=== PATIENT | male | born 1965 | race Caucasian/White ===

== ENCOUNTER → 2017-01-19 | Outpatient (CLI) | payer BC ==
[2017-01-19 13:43] LABS: ALBUMIN 4.2 GM/DL (3.2-5.2); ALBUMIN/GLOBULIN RATIO 1.45 (1.00-1.93); ALKALINE PHOSPHATASE 56 U/L (45-117); ALT/SGPT 38 U/L (12-78); ANION GAP 7 MEQ/L (8-16); AST/SGOT 22 U/L (15-37); BILIRUBIN,TOTAL 0.7 MG/DL (0.2-1.0); BLOOD UREA NITROGEN 20 MG/DL (7-18); CALCIUM LEVEL 8.7 MG/DL (8.5-10.1); CARBON DIOXIDE LEVEL 30 MEQ/L (21-32); CHLORIDE LEVEL 106 MEQ/L (98-107); CREATININE FOR GFR 0.88 MG/DL (0.70-1.30); GLOMERULAR FILTRATION RATE > 60.0 (>56); GLUCOSE, FASTING 113 MG/DL (70-105); SODIUM LEVEL 143 MEQ/L (136-145); TOTAL PROTEIN 7.1 GM/DL (6.4-8.2)
== END ==
LOC: M SMT 09:40
PROVIDERS: ATTEND Family Medicine
DX: E78.00 Pure hypercholesterolemia, unspecified (principal); E11.9 Type 2 diabetes mellitus without complications; E55.9 Vitamin D deficiency, unspecified

== ENCOUNTER → 2017-02-07 | Outpatient (CLI) | payer BC ==
--- NOTE | 2017-02-07 21:06 | REP ---
Clinical: Pain. Technique: AP, lateral, bilateral oblique, flexion/extension and coned-down views of the lumbosacral spine. Findings: Moderate multilevel degenerative changes include endplate sclerosis with disc space narrowing and marginal osteophytes as well as mild hypertrophic facet changes. Extension view suggests mild, 3 mm of posterior subluxation at the L2-3 and L3-4 levels. No acute fracture / compression injury. Impression: Moderate multilevel degenerative changes with mild posterior subluxation on extension at L3-4 and L2-3. Signed by Jose Barriga MD 02/07/2017 08:57 P
--- NOTE | 2017-02-07 22:06 | REP ---
Clinical: Palpable mass. Technique: Real time joshi scale ultrasound examination using linear high frequency transducer. Findings: Directed ultrasound examination overlying the left scapula at the site of palpable mass demonstrates normal subcutaneous tissues and musculature which appear symmetric compared to the contralateral side. No mass lesion, fluid collection or abnormality identified. Impression: Normal examination. No mass lesion identified. Signed by Jose Barriga MD 02/07/2017 09:57 P
== END ==
LOC: M RAD 09:30
PROVIDERS: ATTEND Physician Assistant
DX: M70.812 Other soft tissue disorders related to use, overuse and pressure, left shoulder (principal); M51.36 Other intervertebral disc degeneration, lumbar region; Y93.9 Activity, unspecified; Y92.9 Unspecified place or not applicable; Y99.8 Other external cause status

== ENCOUNTER → 2017-05-25 | Outpatient (CLI) | payer BC ==
--- NOTE | 2017-05-25 14:42 | REP ---
Right femur five views: Mineralization and joint spaces are normal. There is no fracture or dislocation. There are no calcifications or foreign bodies. There is internal fixation of the pelvis on the right. Impression: Negative right femur. Internal fixation of the pelvis. Signed by Zachary Denny MD 05/25/2017 02:34 P
== END ==
LOC: M WUC 13:33
PROVIDERS: ATTEND Physician Assistant
DX: M79.604 Pain in right leg (principal)

== ENCOUNTER → 2018-02-22 | Outpatient (CLI) | payer BC ==
[2018-02-22 14:55] LABS: ANION GAP 5 MEQ/L (8-16); BLOOD UREA NITROGEN 22 MG/DL (7-18); CALCIUM LEVEL 9.4 MG/DL (8.5-10.1); CARBON DIOXIDE LEVEL 31 MEQ/L (21-32); CHLORIDE LEVEL 103 MEQ/L (98-107); GLOMERULAR FILTRATION RATE > 60.0 (>56); GLUCOSE, FASTING 121 MG/DL (70-100); POTASSIUM SERUM 5.3 MEQ/L (3.5-5.1); SODIUM LEVEL 139 MEQ/L (136-145)
[2018-02-22 15:13] LABS: ESTIMATED AVERAGE GLUCOSE 128 MG/DL (60-110); HEMOGLOBIN A1c 6.1 %
== END ==
LOC: M SMT 09:22
DX: E11.9 Type 2 diabetes mellitus without complications (principal)
CPT/HCPCS: 83036

== ENCOUNTER → 2021-02-03 | Outpatient (CLI) | payer BC ==
--- NOTE | 2021-02-03 19:09 | REPVR ---
PROCEDURE INFORMATION: Exam: MR Cervical Spine Without Contrast Exam date and time: 02/03/2021 9:01 AM Age: 55 years old Clinical indication: Neck pain. TECHNIQUE: Imaging protocol: Multiplanar magnetic resonance images of the cervical spine without contrast. COMPARISON: CR Spine,LS wBENDING MIN 6 VIEWS 02/07/2017 9:46 AM FINDINGS: Vertebrae: Unremarkable. Spinal cord: Normal signal. No cord compression. C2-C3: There is disc desiccation. There is a moderate disc/osteophyte complex, partial toward the left, that flattens the ventral thecal sac and compromises the left neural foramen. C3-C4: There is disc desiccation. There is a moderate disc/osteophyte complex that flattens the ventral thecal sac. There is a small central disc protrusion. There is moderate bilateral uncovertebral joint arthropathy. There is mild spinal canal stenosis. C4-C5: There is disc desiccation. There is bilateral uncovertebral joint arthropathy, worse on the right. There is moderate right-sided neuroforaminal narrowing. There is mild spinal canal stenosis. C5-C6: There is disc desiccation. There is a moderate disc/osteophyte complex, partial toward the right, that flattens the ventral thecal sac and compromises the right neural foramen. There is a small central disc protrusion. There is effacement of the ventral subarachnoid space and indentation of the ventral cervical cord. There is mild/moderate spinal canal stenosis. There is bilateral uncovertebral joint arthropathy, worse on the right. There is moderate bilateral neural foraminal narrowing, right worse than left. C6-C7: There is degenerative disc disease including disc space narrowing and dessication. There is a moderate disc/osteophyte complex that flattens the ventral thecal sac. There is a small central disc protrusion. There is mild spinal canal stenosis. There is moderate bilateral uncovertebral joint arthropathy. There is moderate bilateral neural foraminal narrowing. C7-T1: No significant disc disease. No significant spinal stenosis. Soft tissues: Unremarkable. IMPRESSION: Multilevel degenerative changes causing varying degrees of spinal canal and neuroforaminal narrowing. Please see details above. Electronically signed by: Anthony Peralta On 02/03/2021 19:09:17 PM
== END ==
LOC: M PLAIMG 07:40
PROVIDERS: ATTEND Physician Assistant
DX: M50.221 Other cervical disc displacement at C4-C5 level (principal); M50.222 Other cervical disc displacement at C5-C6 level; M48.062 Spinal stenosis, lumbar region with neurogenic claudication

== ENCOUNTER → 2022-08-03 | Outpatient (CLI) | payer BC ==
[~2022-08-03] MED LIST: GASTROGRAFIN SOLUTION 30ML As Ordered ONE; ISOVUE-370 76% 100ML VIAL As Ordered ONE
== END ==
LOC: M RAD 08:30
PROVIDERS: ATTEND Nurse Practitioner Adult Health
DX: R10.32 Left lower quadrant pain (principal); M25.78 Osteophyte, vertebrae; M47.9 Spondylosis, unspecified; K75.3 Granulomatous hepatitis, not elsewhere classified

== ENCOUNTER → 2023-02-08 | Outpatient (CLI) | payer BC | LOC: M PLAIMG 08:53 | PROVIDERS: ATTEND Nurse Practitioner Adult Health | DX: R26.89 Other abnormalities of gait and mobility (principal) ==

== ENCOUNTER 2024-10-02 06:33 | Day surgery (SDC) | payer BC ==
[~2024-10-02] VITALS: Ht 177.8 cm; Wt 94.0 kg
[~2024-10-02 06:33] MED LIST changes: +ATOR40TA75 PO; +FARX1TAB3 PO; -GASTROGRAFIN SOLUTION 30ML As Ordered ONE; -ISOVUE-370 76% 100ML VIAL As Ordered ONE; +LEXA1TAB2 PO; +LISI5TAB11 PO; +METF-838 PO; +PANT20TA6 PO; +TAMS1CAP17 PO
[2024-10-02] MEDS ORDERED: LIDOCAINE 2% 100MG/5ML SDV (FOR ANES.) As Ordered ONE (06:56)
[2024-10-02] MEDS ORDERED: propofoL 200 MG/20 ML VIAL As Ordered ONE (06:56)
[2024-10-02 08:10] VITALS: BP 123/78; O2SAT 100
== END 2024-10-02 08:16 | disposition home or self-care (01) ==
LOC: M OPP 06:33
PROVIDERS: ATTEND Surgery
DX: Z12.11 Encounter for screening for malignant neoplasm of colon (principal); K57.30 Diverticulosis of large intestine without perforation or abscess without bleeding; Z88.8 Allergy status to other drugs, medicaments and biological substances; Z79.84 Long term (current) use of oral hypoglycemic drugs; Z79.899 Other long term (current) drug therapy